=== PATIENT | male | born 1970 | race Caucasian/White ===

== ENCOUNTER 2019-09-18 16:18 | Emergency (ER) | payer MEDICAID ==
[~2019-09-18] VITALS: Ht 177.8 cm; Wt 84.0 kg
[~2019-09-18 16:18] MED LIST: CALC-793 PO; FAMO20TA8 PO; FERR324T4 PO; MULT-342 PO; OMEP40CA13 PO; OXYC-150 PO; TIZA2TAB5 PO
[2019-09-18] MEDS ORDERED: LORazepam 2 mg/ml vial IV ONE (16:20)
[2019-09-18] MEDS ORDERED: diphenhydrAMINE 50 mg/ml inj IV ONE (16:20)
[2019-09-18] MEDS ORDERED: metoclopramide 5 mg/ml inj IV ONE (16:20)
[2019-09-18] MEDS ORDERED: normal saline 1000ML IV soln IVB ONE ×3 (16:20→17:35)
[2019-09-18 16:54] LABS: BASOPHILS # (AUTO) 0.1 X10'3 (0-0.2); BASOPHILS % (AUTO) 0.5 % (0-1); EOSINOPHILS # (AUTO) 0.1 X10'3 (0-0.9); EOSINOPHILS % (AUTO) 0.3 % (0-6); HEMATOCRIT 55.7 % (42.0-52.0); LYMPHOCYTES # (AUTO) 1.6 X10'3 (1.1-4.8); LYMPHOCYTES % (AUTO) 8.3 % (21-51); MEAN CORPUSCULAR HEMOGLOBIN 29.8 PG (27.0-31.0); MEAN CORPUSCULAR HGB CONC 33.5 g/dL (33.0-36.5); MEAN CORPUSCULAR VOLUME 88.7 FL (78-98); MEAN PLATELET VOLUME 9.8 FL (7.4-10.4); MONOCYTES % (AUTO) 5.1 % (2-12); NEUTROPHILS # (AUTO) 16.4 X10'3 (1.8-7.7); NEUTROPHILS % (AUTO) 85.8 % (42-75); PLATELET COUNT 282 X10'3 (140-440); RED BLOOD COUNT 6.27 X10'6 (4.70-6.10); RED CELL DISTRIBUTION WIDTH 13.6 % (11.5-14.5); WHITE BLOOD COUNT 19.1 X10'3 (4.5-11.0)
[2019-09-18 16:57] LABS: HEMOGLOBIN 18.7 g/dl (14.0-17.9)
[2019-09-18 17:11] LABS: ALANINE AMINOTRANSFERASE 27 U/L (12-78); ALBUMIN 4.3 G/DL (3.4-5.0); ALBUMIN/GLOBULIN RATIO 1.2 (1.1-1.5); ALKALINE PHOSPHATASE 67 IU/L (46-116); ANION GAP 15 (8-16); ASPARTATE AMINO TRANSFERASE 25 U/L (10-37); BILIRUBIN,TOTAL 0.9 MG/DL (0.1-1.0); BLOOD UREA NITROGEN 19 MG/DL (7-18); BUN/CREATININE RATIO 13.4 (5.4-32.0); CHLORIDE 106 MMOL/L (99-107); CREATININE 1.42 MG/DL (0.60-1.10); GLUCOSE 156 MG/DL (70-104); LIPASE 122 U/L (73-393); SODIUM 143 MMOL/L (135-145); TOTAL CARBON DIOXIDE 22.1 MMOL/L (24-32); TOTAL PROTEIN 7.9 G/DL (6.4-8.2); eGFR 53 ML/MIN
[2019-09-18 17:13] LABS: POTASSIUM 4.2 MMOL/L (3.5-5.1)
[2019-09-18 17:43] LABS: CLARITY,URINE CLEAR (Clear); COLOR,URINE YELLOW (Yellow); GLUCOSE, URINE NEGATIVE (Neg); KETONES,URINE 15 mg/dl (Neg); LEUKOCYTE ESTERASE ,URINE NEGATIVE (Neg); NITRITES, URINE NEGATIVE (Neg); OCCULT BLOOD,URINE SMALL (Neg); PROTEIN,URINE NEGATIVE (Neg); UROBILINOGEN,URINE 0.2 E.U/dL (0.2-1.0)
[2019-09-18 17:46] LABS: UA COLLECTION TYPE CLN CATCH MIDSTREAM
[2019-09-18 17:47] LABS: BACTERIA,URINE NONE SEEN /HPF (Neg); MUCUS STRANDS FEW /LPF (Neg); RBC,URINE 0-2 /HPF (0-2); SQUAMOUS EPITHELIAL CELL,UR FEW /LPF (FEW); WBC,URINE 0-4 /HPF (0-4)
[2019-09-18] MEDS ORDERED: ONDA4TAB12 PO (18:43)
[2019-09-18] MEDS ORDERED: glycopyrrolate 0.2mg/ml inj IV ONE (18:50)
[2019-09-18] MEDS ORDERED: ketorolac trometh. 30mg/ml inj. IV ONE (18:50)
--- NOTE | 2019-09-18 18:56 | NUR ---
up to bedside commode.
--- NOTE | 2019-09-18 19:00 | NUR ---
yellow foul sweet smell stool sent to lab for c diff culture after notifying Dr duncan of findings.
[2019-09-18 19:30] VITALS: BP 132/87
--- NOTE | 2019-09-18 19:53 | NUR ---
Reports of having waves of cramping pain to abdomen. HR 45-50 bpm after glycopyrolate.
[2019-09-18] MEDS ORDERED: METR-159 PO (19:58)
--- NOTE | 2019-09-18 20:10 | NUR ---
patient DC after reevaluation by Dr Oliva patient reports feeling chills and shivering. IV dc'd and sent home
--- NOTE | 2019-09-18 20:58 | NUR ---
Dr Oliva asked not to DC patient reevaluated labs. Message left for patient to call back to ER. Left message as requested by Dr Oliva.
[2019-09-19 07:32] LABS: C DIFF SPECIMEN=DIARRHEA? ACCEPTABLE; C DIFFICILE TOXINS A&B NEGATIVE (Neg)
[2019-09-19 07:33] LABS: C DIFF ANTIGEN SEE COMMENTS (NEGATIVE)
[2019-09-19 11:39] LABS: C DIFF TOXIN (LAMP) POSITIVE (NEG)
--- NOTE | 2019-09-19 12:15 | NUR ---
TALYA CALLED BACK. LAB RESULTS SHOWN TO DR. OSORIO. THE LACTIC ACID WAS ELEVATED. PT. DENIES ANY SOB, JUST THAT HE HAD BEEN VOMITING A LOT ON THAT DAY. PT. RECEIVED A C-DIFF POSITIVE RESULT ON A STOOL SAMPLE. PT. STATES THAT HE HAD A SOFT STOOL THIS AM... PT. DENIES HAVING STRAIGHT WATERY STOOLS. DR. OSORIO STATED HE WAS PROBLEY A CARRIER, OF OR HAD C-DIFF IN THE PAST. PT. INSTRUCTED TO RETURN TO ER IF, HIS ABDOMINAL PAIN RETURNED, MULTIPLE WATERY STOOLS, OR SOB
== END 2019-09-18 21:25 | disposition home or self-care (01) ==
LOC: ER 16:19
DX: R10.9 Unspecified abdominal pain (principal); E86.0 Dehydration; R19.7 Diarrhea, unspecified; K21.9 Gastro-esophageal reflux disease without esophagitis; F17.210 Nicotine dependence, cigarettes, uncomplicated; Z98.890 Other specified postprocedural states; Z79.899 Other long term (current) drug therapy
CPT/HCPCS: 36415; 71250; 74176; 80053; 81001; 83605; 83690; 84145; 85025; 87045; 87046; 87324; 87449; 87493; 96361; 96374; 96375; 99285; J1200; J1885; J2060; J2765; J7030; J3490

== ENCOUNTER 2021-12-24 12:19 | Emergency (ER) | payer MEDICAID ==
[~2021-12-24] VITALS: Ht 177.8 cm; Wt 81.8 kg
[~2021-12-24 12:19] MED LIST changes: -OMEP40CA13 PO; +OMEP40CA21 PO; +ONDA4TAB12 PO; +TIZA-189 PO; -TIZA2TAB5 PO
[2021-12-24 14:09] LABS: BASOPHILS # (AUTO) 0.1 X10'3 (0-0.2); BASOPHILS % (AUTO) 0.3 % (0-1); EOSINOPHILS % (AUTO) 0 % (0-6); HEMATOCRIT 53.8 % (42.0-52.0); LYMPHOCYTES # (AUTO) 0.7 X10'3 (1.1-4.8); LYMPHOCYTES % (AUTO) 3.6 % (21-51); MEAN CORPUSCULAR HEMOGLOBIN 29.8 PG (27.0-31.0); MEAN CORPUSCULAR HGB CONC 33.8 g/dL (33.0-36.5); MEAN CORPUSCULAR VOLUME 88.1 FL (78-98); MEAN PLATELET VOLUME 9.4 FL (7.4-10.4); MONOCYTES # (AUTO) 1.2 X10'3 (0-0.9); NEUTROPHILS # (AUTO) 17.7 X10'3 (1.8-7.7); NEUTROPHILS % (AUTO) 90.1 % (42-75); PLATELET COUNT 274 X10'3 (140-440); RED BLOOD COUNT 6.11 X10'6 (4.70-6.10); RED CELL DISTRIBUTION WIDTH 13.5 % (11.5-14.5); WHITE BLOOD COUNT 19.6 X10'3 (4.5-11.0)
[2021-12-24 14:17] LABS: ALANINE AMINOTRANSFERASE 48 U/L (12-78); ALBUMIN 5.3 G/DL (3.4-5.0); ALBUMIN/GLOBULIN RATIO 1.3 (1.1-1.5); ALKALINE PHOSPHATASE 85 IU/L (46-116); ANION GAP 15 (8-16); ASPARTATE AMINO TRANSFERASE 23 U/L (10-37); BILIRUBIN,TOTAL 1.2 MG/DL (0.1-1.0); BLOOD UREA NITROGEN 24 MG/DL (7-18); BUN/CREATININE RATIO 14.9 (5.4-32.0); CALCIUM 10.8 MG/DL (8.5-10.1); CHLORIDE 103 MMOL/L (99-107); CREATININE 1.61 MG/DL (0.60-1.10); GLUCOSE 164 MG/DL (70-104); HEMOGLOBIN 18.2 g/dl (14.0-17.9); LIPASE 53 U/L (73-393); POTASSIUM 4.2 MMOL/L (3.5-5.1); SODIUM 142 MMOL/L (135-145); TOTAL PROTEIN 9.5 G/DL (6.4-8.2); eGFR 45 ML/MIN
[2021-12-24] MEDS ORDERED: diphenhydrAMINE 50 mg/ml inj IV ONE (15:20)
[2021-12-24] MEDS ORDERED: normal saline 1000ML IV soln IVB ONE ×2 (15:20)
[2021-12-24] MEDS ORDERED: metoclopramide 5 mg/ml inj IV ONE (15:20)
[2021-12-24] MEDS ORDERED: ONDA4TAB12 PO (16:18)
[2021-12-24] MEDS ORDERED: haloperidol lactate 5mg/ml inj IM ONE (16:50)
--- NOTE | 2021-12-24 16:52 | NUR ---
Expressed to patient that we still regina a urine from him. He stated he didnt feel like he could go at the moment, urinal placed at bedside just in case.
[2021-12-24] MEDS ORDERED: normal saline 1000ml 1,000 ML IV ONE (17:00)
[2021-12-24 17:18] VITALS: BP 110/57
== END 2021-12-24 17:43 | disposition home or self-care (01) ==
LOC: ER 12:22
DX: R11.2 Nausea with vomiting, unspecified (principal); R10.9 Unspecified abdominal pain; K21.9 Gastro-esophageal reflux disease without esophagitis; F12.10 Cannabis abuse, uncomplicated; Z79.899 Other long term (current) drug therapy
CPT/HCPCS: 36415; 80053; 83690; 84145; 85025; 96361; 96372; 96374; 96375; 99284; J1200; J1630; J2765; J7030

== ENCOUNTER 2024-06-12 15:46 | Emergency (ER) | payer MEDICAID ==
[~2024-06-12] VITALS: Ht 177.8 cm; Wt 85.2 kg
[~2024-06-12 15:46] MED LIST changes: +ONDA-243 PO; -ONDA4TAB12 PO
[2024-06-12 18:05] LABS: BASOPHILS % (AUTO) 0.2 % (0-1); EOSINOPHILS % (AUTO) 0 % (0-6); HEMATOCRIT 52.9 % (42.0-52.0); LYMPHOCYTES # (AUTO) 0.6 X10'3 (1.1-4.8); LYMPHOCYTES % (AUTO) 3.2 % (21-51); MEAN CORPUSCULAR HEMOGLOBIN 30.3 PG (27.0-31.0); MEAN CORPUSCULAR VOLUME 89.3 FL (78-98); MEAN PLATELET VOLUME 9.8 FL (7.4-10.4); MONOCYTES # (AUTO) 1.2 X10'3 (0-0.9); MONOCYTES % (AUTO) 6.5 % (2-12); NEUTROPHILS # (AUTO) 16.5 X10'3 (1.8-7.7); NEUTROPHILS % (AUTO) 90.1 % (42-75); PLATELET COUNT 294 X10'3 (140-440); RED BLOOD COUNT 5.93 X10'6 (4.70-6.10); RED CELL DISTRIBUTION WIDTH 13.3 % (11.5-14.5); WHITE BLOOD COUNT 18.3 X10'3 (4.5-11.0)
[2024-06-12] MEDS: ondansetron/PF 4mg/2ml inj IV ONE (18:07)
[2024-06-12] MEDS: diphenoxylate/atropine tablet (Lomotil) PO ONE (18:07)
[2024-06-12] MEDS: normal saline 1000ML IV soln IV ONE (18:07)
[2024-06-12] MEDS: ketorolac trometh 15mg/ml vial 15 MG/ML ML IV ONE (18:08)
[2024-06-12 18:12] LABS: ALANINE AMINOTRANSFERASE 21 U/L (12-78); ALBUMIN 4.5 G/DL (3.4-5.0); ALKALINE PHOSPHATASE 85 IU/L (46-116); ANION GAP 17 (8-16); ASPARTATE AMINO TRANSFERASE 15 U/L (10-37); BILIRUBIN,TOTAL 1.2 MG/DL (0.1-1.0); BLOOD UREA NITROGEN 20 MG/DL (7-18); BUN/CREATININE RATIO 12.4 (10.0-20.0); CALCIUM 10.2 MG/DL (8.5-10.1); CHLORIDE 99 MMOL/L (99-107); CREATININE 1.61 MG/DL (0.60-1.10); GLUCOSE 173 MG/DL (70-104); MAGNESIUM 1.4 MG/DL (1.5-2.4); POTASSIUM 3.9 MMOL/L (3.5-5.1); SODIUM 138 MMOL/L (135-145); TOTAL CARBON DIOXIDE 21.9 MMOL/L (24-32); TOTAL PROTEIN 8.8 G/DL (6.4-8.2); eCRCL 54 ML/MIN; eGFR 45 ML/MIN
[2024-06-12] MEDS ORDERED: ONDA-245 PO (18:33)
[2024-06-12] MEDS: magnesium sulf-water 2g/50mL 50 ML IV ONE (18:52)
[2024-06-12] MEDS: diphenhydrAMINE 50 mg/ml inj IV ONE (18:59)
[2024-06-12] MEDS: metoclopramide 5 mg/ml inj IV ONE (18:59)
[2024-06-12 20:21] VITALS: BP 95/56; PULSE 76; RESP 16; TEMP 97.8; O2SAT 96
== END 2024-06-12 20:25 | disposition home or self-care (01) ==
LOC: ER 15:46
DX: R11.2 Nausea with vomiting, unspecified (principal); R19.7 Diarrhea, unspecified; E83.42 Hypomagnesemia; K21.9 Gastro-esophageal reflux disease without esophagitis; F12.90 Cannabis use, unspecified, uncomplicated; Z79.899 Other long term (current) drug therapy; Z20.822 Contact with and (suspected) exposure to COVID-19
CPT/HCPCS: 36415; 80053; 83735; 85025; 87502; 87503; 87811; 96361; 96365; 96375; 99285; J1200; J1885; J2405; J2765; J7030